=== PATIENT | female | born 1950 | race Caucasian/White ===

== ENCOUNTER 2016-08-20 09:16 | Day surgery (SDC) | payer OTHER ==
[~2016-08-20 09:16] MED LIST: CALCIUM CITRATE PO; CYMBALTA60 M1 PO; FOLIC ACID1 M1 PO; KLONOPIN0.5 M1 PO; MOBIC15 M2 PO; MULTIVITAMINS1 EAC6 PO; PREDNISONE5 M1 PO; PREMPRO 0.3 MG1 EACH PO; TREXALL PO; TYLENOL EXTRA500 M1 PO; ULTRAM50 M1 PO
[2016-08-21] MEDS ORDERED: PERCOCET 5-3251 EACH PO ×2 (02:58→09:42)
== END 2016-08-21 10:55 ==
LOC: SHSB 09:16 → ORW 10:16 → PACU 12:02 → OBGE 13:00
PROC: 0UT94ZZ Resection of Uterus, Percutaneous Endoscopic Approach (ICD-10-PCS; principal; 2016-08-20)
PROC: 0UTC4ZZ Resection of Cervix, Percutaneous Endoscopic Approach (ICD-10-PCS; 2016-08-20)
PROC: 0UT24ZZ Resection of Bilateral Ovaries, Percutaneous Endoscopic Approach (ICD-10-PCS; 2016-08-20)
PROC: 0UT74ZZ Resection of Bilateral Fallopian Tubes, Percutaneous Endoscopic Approach (ICD-10-PCS; 2016-08-20)
PROC: 8E0W4CZ Robotic Assisted Procedure of Trunk Region, Percutaneous Endoscopic Approach (ICD-10-PCS; 2016-08-20)
DX: N72 Inflammatory disease of cervix uteri (principal); D25.2 Subserosal leiomyoma of uterus; D25.1 Intramural leiomyoma of uterus; N88.8 Other specified noninflammatory disorders of cervix uteri; N85.8 Other specified noninflammatory disorders of uterus; M17.9 Osteoarthritis of knee, unspecified; M06.9 Rheumatoid arthritis, unspecified; F32.9 Major depressive disorder, single episode, unspecified; K58.1 Irritable bowel syndrome with constipation; M85.80 Other specified disorders of bone density and structure, unspecified site; Z79.1 Long term (current) use of non-steroidal anti-inflammatories (NSAID); Z79.52 Long term (current) use of systemic steroids; Z79.899 Other long term (current) drug therapy; Z88.1 Allergy status to other antibiotic agents; Z87.891 Personal history of nicotine dependence; Z82.61 Family history of arthritis; Z82.5 Family history of asthma and other chronic lower respiratory diseases; Z98.1 Arthrodesis status; Z98.890 Other specified postprocedural states
CPT/HCPCS: J0690; J1720; J2270; J3010; J7030; J7121; J7512